=== PATIENT | male | born 1945 | race Caucasian/White ===

== ENCOUNTER 2017-11-04 08:39 | Emergency (ER) | payer OTHER, BC ==
--- NOTE | 2017-11-04 08:53 | EDPHYS ---
Physician Documentation [facility] Name: [place] Delmis Cabral Age: 72 yrs Sex: Male : 1945 Arrival Date: 11/04/2017 Time: 08:42 Bed 13 Private MD: Alex Cowan T ED Physician Cornell Araiza HPI: 11/04 08:50 This 72 yrs old Male presents to ER via Unassigned with complaints of Insect rn Bite. 08:50 The patient presents with cellulitis of the left leg. Description: erythematous, warm. rn Onset: The symptoms/episode began/occurred yesterday. Possible cause(s): unknown. Associated signs and symptoms: Pertinent positives: erythema, Pertinent negatives: discharge, drainage. Severity of symptoms: At their worst the symptoms were mild, in the emergency department the symptoms are unchanged. The patient has experienced a previous episode. The patient has not recently seen a physician. Reports thinks maybe got bit by insect, reports warmth and redness to left leg, no drainage, no trauma, did not see insect. . Historical: - Allergies: 09:00 Sulfa (Sulfonamide Antibiotics); ph - Home Meds: 09:00 BP med [Active]; metformin Oral [Active]; Victoza 2-Russ subcutaneous subcutaneous ph [Active]; - PMHx: 09:00 Hypertension; Diabetes - NIDDM; ph - Immunization history:: Adult Immunizations unknown. - Family history:: not pertinent. - Social history:: Smoking status: Patient/guardian denies using tobacco. - Ebola Screening: : No symptoms or risks identified at this time. - Hospitalizations: : No recent hospitalization is reported. ROS: 08:50 Constitutional: Negative for fever, chills, and weight loss, MS/Extremity: Negative for rn injury and deformity, Skin: + erythema and warmth Exam: 08:50 Constitutional: This is a well developed, well nourished patient who is awake, alert, rn and in no acute distress. Skin: Warm, dry. LLE posteriorly shows area approx 8 cm diameter with warmth, no fluctuance, + mild induration. Vital Signs: 08:51 BP 139 / 92; Pulse 80; Resp 18; Temp 98.0; Pulse Ox 96% on R/A; Weight 117.93 kg; ph Height 5 ft. 10 in. (177.80 cm); Pain 0/10; 08:51 Body Mass Index 37.31 (117.93 kg, 177.80 cm) ph MDM: 08:45 Patient medically screened. rn 08:50 Differential diagnosis: cellulitis, insect bite. Data reviewed: vital signs, nurses rn notes, and as a result, I will discharge patient. Counseling: I had a detailed discussion with the patient and/or guardian regarding: the historical points, exam findings, and any diagnostic results supporting the discharge/admit diagnosis, the need for outpatient follow up, to return to the emergency department if symptoms worsen or persist or if there are any questions or concerns that arise at home. Special discussion: I discussed with the patient/guardian in detail that at this point there is no indication for admission to the hospital. It is understood, however, that if the symptoms persist or worsen the patient needs to return immediately for re-evaluation. Administered Medications: 08:58 Drug: Clindamycin 300 mg Route: PO; ph 08:58 Follow up: Response: Medication administered at discharge. ph 08:58 Drug: KeFLEX 500 mg Route: PO; ph 08:58 Follow up: Response: Medication administered at discharge. ph Disposition: 11/04/17 08:52 Discharged to Home. Impression: Cellulitis of left lower limb. - Condition is Stable. - Discharge Instructions: Cellulitis. - Prescriptions for Clindamycin HCl 300 mg Oral Capsule - take 1 capsule by ORAL route every 6 hours for 10 days; 40 capsule. Keflex 500 mg Oral Capsule - take 1 capsule by ORAL route every 12 hours for 10 days; 20 capsule. - Medication Reconciliation Form, Thank You Letter, Antibiotic Education, Prescription Opioid Use form. - Follow up: Alex Cowan MD; When: 5 - 6 days; Reason: Recheck today's complaints, Re-evaluation by your physician. - Problem is new. - Symptoms are unchanged. Signatures: Cornell Araiza MD MD rn Hall, Patricia, RN RN ph Corrections: (The following items were deleted from the chart) 09:05 08:52 11/04/2017 08:52 Discharged to Home. Impression: Cellulitis of left lower limb. ph Condition is Stable. Forms are Medication Reconciliation Form, Thank You Letter, Antibiotic Education, Prescription Opioid Use. Follow up: Alex Cowan; When: 5 - 6 days; Reason: Recheck today's complaints, Re-evaluation by your physician. Problem is new. Symptoms are unchanged. rn
--- NOTE | 2017-11-04 08:53 | ER ---
Nurse's Notes [facility] Name: [place] Delmis Cabral Age: 72 yrs Sex: Male : 1945 Arrival Date: 11/04/2017 Time: 08:42 Bed 13 Private MD: Alex Cowan T Diagnosis: Cellulitis of left lower limb Presentation: 11/04 08:50 Presenting complaint: Patient states: " I think I got bit by a spider or something. I ph woke up and my leg was a little swollen and hot." Redness noted to back of left lower calve, pt denies pain, itching or fever. Transition of care: patient was not received from another setting of care. Onset of symptoms was November 04, 2017. Risk Assessment: Do you want to hurt yourself or someone else? Patient reports no desire to harm self or others. Initial Sepsis Screen: Does the patient meet any 2 criteria? No. Patient's initial sepsis screen is negative. Does the patient have a suspected source of infection? Yes: Skin breakdown/wound. Care prior to arrival: None. 08:50 Method Of Arrival: Ambulatory ph 08:50 Acuity: JACK 4 ph Triage Assessment: 09:03 Bite description: animal information: vaccination(s) is not applicable. ph Historical: - Allergies: 09:00 Sulfa (Sulfonamide Antibiotics); ph - Home Meds: 09:00 BP med [Active]; metformin Oral [Active]; Victoza 2-Russ subcutaneous subcutaneous ph [Active]; - PMHx: 09:00 Hypertension; Diabetes - NIDDM; ph - Immunization history:: Adult Immunizations unknown. - Family history:: not pertinent. - Social history:: Smoking status: Patient/guardian denies using tobacco. - Ebola Screening: : No symptoms or risks identified at this time. - Hospitalizations: : No recent hospitalization is reported. Screenin:00 Abuse screen: Denies threats or abuse. Denies injuries from another. Nutritional ph screening: No deficits noted. Tuberculosis screening: No symptoms or risk factors identified. Fall Risk None identified. Assessment: 08:45 General: Appears in no apparent distress. comfortable, obese, well groomed, Behavior is ph calm, cooperative, appropriate for age, Denies fever, feeling ill. Pain: Denies pain. Neuro: Level of Consciousness is awake, alert, obeys commands, Oriented to person, place, time, situation. Cardiovascular: Capillary refill < 3 seconds Patient's skin is warm and dry. Respiratory: Airway is patent Respiratory effort is even, unlabored. Derm: Skin is intact, Skin is pink, warm \\T\\ dry. redness and swelling noted to posterior L calve/ankle, area warm to touch Denies itching, pain. Musculoskeletal: Circulation, motion, and sensation intact. Range of motion: intact in all extremities. Vital Signs: 08:51 BP 139 / 92; Pulse 80; Resp 18; Temp 98.0; Pulse Ox 96% on R/A; Weight 117.93 kg; ph Height 5 ft. 10 in. (177.80 cm); Pain 0/10; 08:51 Body Mass Index 37.31 (117.93 kg, 177.80 cm) ph ED Course: 08:42 Patient arrived in ED. sb2 08:42 Alex Cowan MD is Private Physician. sb2 08:45 Cornell Araiza MD is Attending Physician. rn 08:49 Karolina Walden RN is Primary Nurse. ph 08:51 Triage completed. ph 08:52 Alex Cowan MD is Referral Physician. rn 08:52 Arm band placed on. ph 09:03 No provider procedures requiring assistance completed. Patient did not have IV access ph during this emergency room visit. 09:04 Patient has correct armband on for positive identification. Bed in low position. Call ph light in reach. Side rails up X 1. Pulse ox on. NIBP on. Administered Medications: 08:58 Drug: Clindamycin 300 mg Route: PO; ph 08:58 Follow up: Response: Medication administered at discharge. ph 08:58 Drug: KeFLEX 500 mg Route: PO; ph 08:58 Follow up: Response: Medication administered at discharge. ph Outcome: 08:52 Discharge ordered by . rn 09:04 Discharged to home ambulatory, with significant other. ph 09:04 Condition: good 09:04 Discharge instructions given to patient, Instructed on discharge instructions, follow up and referral plans. medication usage, Demonstrated understanding of instructions, follow-up care, medications, Prescriptions given X 2. 09:05 Patient left the ED. ph Signatures: Cornell Araiza MD MD rn Hall, Patricia, RN RN Michelle Santiago sb2
[2017-11-04] MEDS ORDERED: CLINDAMYCIN HCL 150 MG CAP ONE (08:57)
[2017-11-04] MEDS ORDERED: CEPHALEXIN 250 MG CAP ONE (08:57)
== END 2017-11-04 09:05 | disposition home or self-care (01) ==
LOC: ER 08:39
DX: L03.116 Cellulitis of left lower limb (principal); Z88.2 Allergy status to sulfonamides; I10 Essential (primary) hypertension; E11.9 Type 2 diabetes mellitus without complications; Z79.84 Long term (current) use of oral hypoglycemic drugs
CPT/HCPCS: 99283

== ENCOUNTER 2021-05-27 12:46 | Emergency (ER) | payer OTHER, BC ==
[2021-05-27] MEDS ORDERED: EPINEPHrine 1 MG/10 ML SYR IV ONE (12:47)
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
--- NOTE | 2021-05-27 12:59 | EDPHYS ---
Physician Documentation [facility] Name: [place] Delmis Cabral Age: 76 yrs Sex: Male : 1945 Arrival Date: 05/27/2021 Time: 12:47 Bed 3 Private MD: ED Physician Neftali Ang HPI: 05/27 13:32 This 76 yrs old Male presents to ER via EMS with complaints of CPR. [facility] 13:32 Preceding the arrest, the patient was found down by family. The arrest occurred at [facility] home. Pre-hospital course: The arrest was not witnessed by others. Bystanders at the scene did not perform CPR. EMS care prior to arrival: initiation of ACLS, peripheral IV, was successfully placed. intubation was successfully performed, using a 8.0 ET tube. oxygen, by BVM to assist ventilations. 100% by ET tube. backboard, ACLS details: Initial rhythm was asystole. The presenting rhythm is asystole. Medications given by EMS prior to arrival - Epinephrine IV x 1 doses, bicarb, Response to therapy: continued arrest. The patient has not experienced similar symptoms in the past. The patient has not recently seen a physician. Historical: - Allergies: 12:42 Sulfa (Sulfonamide Antibiotics); bp - Home Meds: 12:42 Victoza 2-Russ subcutaneous [Active]; Metformin Oral [Active]; BP med [Active]; bp - PMHx: 12:42 Diabetes - NIDDM; Hypertension; bp ROS: 13:32 Unable to obtain ROS due to cardiac arrest. [facility] Exam: 13:32 Eyes: Periorbital structures: appear normal, Pupils: are fixed and dilated. jr8 13:32 Cardiovascular: Pulses: not palpable, Heart sounds: absent. 13:32 Respiratory: Respiratory rate: 12 bpm via ET tube and BVM equal bilaterally. Clear to auscultation . 13:32 Abdomen/GI: Inspection: obese Palpation: soft, in all quadrants. 13:32 Skin: Appearance: Color: pale, Temperature: warm. Vital Signs: 12:42 Weight 104.33 kg; Height 5 ft. 10 in. (177.80 cm); bp 12:53 Temp 94.6(R); ph 12:42 Body Mass Index 33.00 (104.33 kg, 177.80 cm) bp Gale Coma Score: 13:32 Eye Response: none(1). Verbal Response: none(1). Motor Response: none(1). Modifying [facility] Factors: Intubated. Total: 3. MDM: 12:51 Patient medically screened. 8 12:57 Data reviewed: vital signs, nurses notes. Counseling: I had a detailed discussion with [facility] the patient and/or guardian regarding: the historical points, exam findings, and any diagnostic results supporting the discharge/admit diagnosis. 12:58 ED course: Patient with unknown downtime. EMS had initial rhythm when they arrived on [facility] scene with asystole. Had given bicarb, fluids, epinephrine. Had a rhythm change to pulseless electrical activity but no other return of spontaneous circulation. When patient arrived patient had been down for 25+ minutes based on just EMS time alone. Patient was given another round of epinephrine and continued CPR. Rhythm at that time continue to be asystole. Patient's pupils were dilated and fixed. At that time assessment for viability was evaluated and time of was was called secondary to length of time patient has been without a pulse. Administered Medications: No medications were administered Disposition: 12:57 . [facility] 19:05 Co-signature as Attending Physician, Neftali Ang MD I agree with the assessment and kdr plan of care. Disposition Summary: 05/27/21 12:58 Patient Location: Home [facility] Pronouncing Physician: Yovany Hart Time of : 12:57 05/27/2021 [facility] Diagnosis - Cardiac arrest, cause unspecified [facility] Signatures: Neftali Ang MD MD [facility] Yovany Hart PA PA [facility] Bari Hinds, RN RN bp
[2021-05-28 00:35] VITALS: TEMP 94.6
== END 2021-05-27 18:44 | disposition expired ==
LOC: ER 12:46
DX: I46.9 Cardiac arrest, cause unspecified (principal); E11.9 Type 2 diabetes mellitus without complications; I10 Essential (primary) hypertension; Z79.4 Long term (current) use of insulin; Z88.2 Allergy status to sulfonamides
CPT/HCPCS: 92950; 99285; J0171